=== PATIENT | male | born 1965 | race Caucasian/White ===

== ENCOUNTER 2020-10-08 14:52 | Emergency (ER) | payer OTHER, SELFPAY ==
[2020-10-08 15:03] VITALS: BP 169/84; PULSE 94; RESP 18; TEMP 36.9; O2SAT 99; BMI 32.3
[2020-10-08] MEDS: KETOROLAC 60 MG/2 ML VIAL 30 MG IM (15:14)
[2020-10-08] MEDS: ACETAMINOPHEN 325 MG TABLET 650 MG PO (15:15)
[2020-10-08] MEDS: CYCLOBENZAPRINE 10 MG TABLET PO (15:15)
--- NOTE | 2020-10-08 15:51 | ED_ITS ---
HPI - Back Pain/Injury <Enzo Vogt [facility] - Last Filed: 10/08/20 16:08> General Chief Complaint: Back Pain/Injury Stated Complaint: LOWER BACK Time Seen by Provider: 10/08/20 15:00 Source: patient Mode of arrival: Ambulatory Limitations: no limitations History of Present Illness HPI Narrative: This is a 54-year-old male, smoker, who has past medical history with chronic back pain, hypertension, hyperlipidemia, diabetes presents to ED with chief complain of recurring low back pain after he lifted heavy equipments follow up with twisting motion. Patient reports pain in low thoracic and upper lumbar region without radiation. Patient reports pain as 9/10 which is constant and worse with movements and lifting legs. Patient has been using [id number] salompas, Naproxen and Asprin backpain with minimal improvement. Patient reports had several x-ray tests were done without abnormal findings. Patient denies urinary symptoms such as urgency, frequency, dysuria, or hematuria. Patient denies fever, chills, nausea, vomiting, rashes. Patient denies history of IV drug use. Related Data Previous Rx's Medication Instructions Recorded cyclobenzaprine 10 mg PO BID PRN #10 tab 10/08/20 lidocaine 1 - 2 patch TOPICAL DAILY PRN #30 10/08/20 ea Allergies Allergy/AdvReac Type Severity Reaction Status Date / Time No Known Drug Allergies Allergy Verified 10/08/20 15:06 Review of Systems <Enzo Vogt [facility] - Last Filed: 10/08/20 16:08> Review of Systems Narrative: General: Denies fever, chills, fatigue, malaise, sweats. HEENT: Denies sinus pain, ear pain, sore throat, difficulty swallowing, dizziness. Respiratory: Denies dyspnea, cough, wheezing, hemoptysis, sputum. Cardiovascular: Denies chest pain, palpitations, orthopnea, edema. Gastrointestinal: Denies nausea, vomiting, abdominal pain, diarrhea, constipation, melena. : Denies dysuria, frequency, incontinence, hematuria, urinary retention. Musculoskeletal: See HPI Skin: Denies rash, skin lesions, or other. Neurologic: Denies weakness, headache, numbness, change in speech, confusion, seizures, incoordination. Psychiatric: No concerning psychosocial issues. 12-point review of systems is negative except for those stated above. Patient History <KATHY Foster - Last Filed: 10/08/20 16:08> Social History Smoking Status: Former smoker Smoking Status: Former smoker alcohol intake frequency: 0-2 drinks per day Substance Use Type: does not use Exam <KATHY Foster - Last Filed: 10/08/20 16:08> Narrative Exam Narrative: GEN: Alert, oriented x 3, well appearing and nourished, and in no acute distress. Head: Normal cephalic, atraumatic. No scalp or temporal tenderness, palpable mass or rash. EYES: Pupils are equal, round, and reactive to light and accommodation. Extrao cular muscles are intact bilaterally. There is no subconjunctival hemorrhage, exudate and sclera non-icteric. ENT: Hearing grossly intact. Airway patent. Neck: Trachea in midline. No JVD, non-tender without lymphadenopathy. No masses or thyroid megaly. Supple, non-tender and no meningeal signs. CARDIAC: Normal regular rate and rhythm without murmurs, gallops, or rubs. No chest wall tenderness. No peripheral edema, cyanosis or pallor. Capillary refill is less than 2 seconds. RESPIRATORY: Lungs are clear to auscultate bilaterally. No cough, wheezes, rales, or rhonchi. No stridor, respiratory distress, increase work of breathing, or accessary muscle used. ABD: Abdomen soft, nontender and non-distended. No guarding or rebound tenderness to palpate. Bowel sounds are normal in all 4 quadrants. There is no palpable masses or organomegaly. EXT: Full painless ROM of all extremities with no loss of sensation, strength, effusion or edema. SKIN: Warm, dry, normal color for patient. No erythema, lesions or rash over visible areas. NEUROLOGICAL: Alert and oriented to place, time and person. Sensation and motor function intact bilaterally. No facial droops, dysphasia. PSYCHIATRIC: Good judgement and reason, without hallucinations, abnormal affect or abnormal behaviors during the examination. Patient is not suicidal. Initial Vital Signs Initial Vital Signs: Vital Signs Temperature 98.5 F 10/08/20 15:03 Pulse Rate 94 H 10/08/20 15:03 Respiratory Rate 18 10/08/20 15:03 Blood Pressure 169/84 H 10/08/20 15:03 Pulse Oximetry 99 10/08/20 15:03 Back/Spine/Pelvis Back: normal to inspection Thoracic/Lumbar Spine: thoracic and lumbar spine normal to inspection, No surgical scar(s) present, bend over test abnormal, pain with thoraco-lumbar ROM, paraspinal tenderness, thoraco-lumbar ROM limited, No thoracic spinal tenderness, No lumbar spinal tenderness and straight leg raise positive <Umang Aguilar DO - Last Filed: 10/08/20 16:13> Initial Vital Signs Initial Vital Signs: Vital Signs Temperature 98.5 F 10/08/20 15:03 Pulse Rate 94 H 10/08/20 15:03 Respiratory Rate 18 10/08/20 15:03 Blood Pressure 169/84 H 10/08/20 15:03 Pulse Oximetry 99 10/08/20 15:03 Scores <RADHA FosterP - Last Filed: 10/08/20 16:08> GCS Gisell coma scale eye opening: Spontaneous Gisell coma scale verbal response: Orientated [place] coma scale motor response: Obey commands [place] coma scale total score: 15 qSOFA Altered Mental Status (GCS <15): No Respiratory rate greater than/equal to 22: No Systolic blood pressure less than or equal to 100: No qSOFA Total: 0 0-1 Not High Risk 1-3 High risk Course <RADHA FosterP - Last Filed: 10/08/20 16:08> Orders Ordered: Discontinued Medications Acetaminophen (Acetaminophen 325 Mg Tablet) 650 mg PO NOW ONE Stop: 10/08/20 15:12 Last Admin: 10/08/20 15:15 Dose: 650 mg Documented by: DEREK Cyclobenzaprine HCl (Cyclobenzaprine 10 Mg Tablet) 10 mg PO NOW ONE Stop: 10/08/20 15:12 Last Admin: 10/08/20 15:15 Dose: 10 mg Documented by: DEREK Ketorolac Tromethamine (Ketorolac 60 Mg/2 Ml Vial) 30 mg IM NOW ONE Stop: 10/08/20 15:12 Last Admin: 10/08/20 15:14 Dose: 30 mg Documented by: DEREK Vital Signs Vital signs: Vital Signs - 8 hr 10/08/20 15:03 Temperature 98.5 F Pulse Rate 94 H Respiratory Rate 18 Blood Pressure 169/84 H Pulse Oximetry 99 <Umang Aguilar DO - Last Filed: 10/08/20 16:13> Orders Ordered: Discontinued Medications Acetaminophen (Acetaminophen 325 Mg Tablet) 650 mg PO NOW ONE Stop: 10/08/20 15:12 Last Admin: 10/08/20 15:15 Dose: 650 mg Documented by: DEREK Cyclobenzaprine HCl (Cyclobenzaprine 10 Mg Tablet) 10 mg PO NOW ONE Stop: 10/08/20 15:12 Last Admin: 10/08/20 15:15 Dose: 10 mg Documented by: DEREK Ketorolac Tromethamine (Ketorolac 60 Mg/2 Ml Vial) 30 mg IM NOW ONE Stop: 10/08/20 15:12 Last Admin: 10/08/20 15:14 Dose: 30 mg Documented by: DEREK Vital Signs Vital signs: Vital Signs - 8 hr 10/08/20 15:03 Temperature 98.5 F Pulse Rate 94 H Respiratory Rate 18 Blood Pressure 169/84 H Pulse Oximetry [address] [facility] - Back Pain/Injury <KATHY Foster - Last Filed: 10/08/20 16:08> Differential Diagnosis Differential diagnosis: Likely strain of lumbar region, renal colic, pyelonephritis, thoracic back pain, discitis and other Medical Records Attestation: I reviewed the patient's medical records. [facility] Narrative Medical decision making narrative: This is a 54-year-old male who presents to ED with nonradiating low back pain without constitutional symptoms, urinary symptoms, trauma, no numbness/tingling to lower extremities, or incontinence problems for last 2 days after he was lifting heavy equipments and twisting motion. Patient has known history of low back pain with intermittent exacerbation. Thought about kidney stones or urinary infection but patient's presentation was not consistent with this. Paraspinous region tender to palpate bilaterally in low back. There is no spinous tenderness, redness, or warmth appreciated and patient has no history of IV drug use. Patient was treated IM Toradol, Tylenol and Flexeril and he started to feel improvement before discharged to home. Patient discharged to home with same medications and work note for 2 days. Advised to follow up with primary care physician for further evaluation and treatment, consider physical therapy, and further imaging test if patient's pain persists or not improving as expected. Return precautions discussed with patient and he verbalized understanding and agreement with the treatment plan. Discharge Plan Departure Patient Disposition: Home Clinical Impression: Low back pain Qualifiers: Chronicity: acute Back pain laterality: bilateral Sciatica presence: without sciatica Qualified Code(s): M54.5 - Low back pain Instructions: DI for Low Back Pain Activity Restrictions/Additional Instructions: You have been diagnosed with [low back pain]. What to do: *Take your medications as directed. Please use [id number] Tylenol and or Motrin as needed for discomfort. Tylenol 650-1000 mg up to 3 times a day as needed for pain. Ibuprofen/Naprosyn as needed for pain and follow instructions on the bottle and please take this medication with food to decrease GI irritations. Use lidocaine patch on affected site which stays on for 12 hours and off for 12 hours as needed for pain. Please use Flexeril for muscle relaxation. This medication can cause drowsiness so please do not drive, drink alcohol, or operate heavy equipments. These 2 medication have been transmitted to [facility], [place], operated by [facility]. *Follow up with your primary care provider in 2-3 days, call for an appointment. Let them know you were seen in the ED and that we asked you to be seen in follow up. *Return to ED if you have any new, worsening, or concerning symptoms, such as [chest pain, breathing difficulty, unable to tolerate fluids, fever, urinary sy mptoms, rash, weakness/numbness/tingling to lower extremities, stool/urinary incontinence, numbness to groin or any acute concerns]. Prescriptions: New lidocaine 5 % adhesive patch,medicated 1 - 2 patch topical DAILY PRN (Reason: pain) Qty: 30 RF: 0 cyclobenzaprine 10 mg tablet 10 mg PO BID PRN (Reason: muscle spasm) Qty: 10 RF: 0 Referrals: [facility] [Outside] Stand Alone Forms: Work Release Note <Umang Aguilar, - Last Filed: 10/08/20 16:13> Cosign ED Attending Cosignature Attestation: Dr Aguilar Co-Sign Statement: I was available for consultation during this patient's emergency department visit. This chart is signed by myself for administrative purposes only. I did not have direct contact with this patient during this visit. They were seen independe ntly by the [facility].
[2020-10-08 16:15] VITALS: BP 128/65; PULSE 81; RESP 16; O2SAT 98
== END 2020-10-08 16:23 | disposition home or self-care (01) ==
PROVIDERS: Emergency Provider Nurse Practitioner Family
DX: M54.5 Low back pain (principal); M54.6 Pain in thoracic spine; I10 Essential (primary) hypertension; E78.5 Hyperlipidemia, unspecified; E11.9 Type 2 diabetes mellitus without complications; X50.0XXA Overexertion from strenuous movement or load, initial encounter
CPT/HCPCS: 96372; 99281; 99283; J1885

== ENCOUNTER 2021-02-07 11:58 | Emergency (ER) | payer OTHER, SELFPAY ==
[2021-02-07 12:13] VITALS: BP 158/80; PULSE 76; RESP 17; TEMP 36.9; O2SAT 97
--- NOTE | 2021-02-07 16:46 | ED.BACK ---
HPI - Back Pain/Injury General Chief Complaint: Back Pain/Injury Stated Complaint: lower back pain Time Seen by Provider: 02/07/21 16:41 Source: patient History of Present Illness HPI Narrative: Patient is a 55-year-old male who has chronic back pain and presents with worsening back pain over last day. He goes to physical therapy for his back pain. He wears a back brace. He is unsure exactly what he did he thinks maybe he needs. He has bilateral lumbar pain. He denies numbness or tingling down his legs. He has previously received Flexeril which is helped him in the past. No changes in bowel or bladder habits. Related Data Previous Rx's Medication Instructions Recorded cyclobenzaprine 10 mg tablet 10 mg PO BID PRN #10 tab 10/08/20 lidocaine 5 % topical patch 1 - 2 patch TOPICAL DAILY PRN #30 10/08/20 ea cyclobenzaprine 5 mg tablet 5 mg PO TID PRN #10 tab 02/07/21 Allergies Allergy/AdvReac Type Severity Reaction Status Date / Time No Known Drug Allergies Allergy Verified 02/07/21 12:17 Review of Systems Review of Systems Narrative: GENERAL: Denies chills,fever HEENT: Denies throat pain RESPIRATORY: Denies dyspnea, cough, wheezing CARDIOVASCULAR: Denies chest pain, palpitations GASTROINTESTINAL: Denies nausea, vomiting MUSCULOSKELETAL: See HPI SKIN: No rash, no laceration, no pruritus NEUROLOGIC: Denies weakness, dizziness, headache, numbness 8 point review of systems is negative except for those stated above and HPI Patient History Social History Smoking Status: Former smoker Smoking Status: Former smoker alcohol intake frequency: other Substance Use Type: does not use Exam Initial Vital Signs Initial Vital Signs: Vital Signs Temperature 98.4 F 02/07/21 12:13 Pulse Rate 76 02/07/21 12:13 Respiratory Rate 17 02/07/21 12:13 Blood Pressure 158/80 H 02/07/21 12:13 Pulse Oximetry 97 02/07/21 12:13 GENERAL: Well-appearing, well-nourished and in no acute distress. CARDIOVASCULAR: peripheral pulses in tact, cap refill <2 sec RESPIRATORY: No respiratory distress, speaks in full sentences without difficulty BACK: No vertebral tenderness bilateral lower lumbar pain cessation in lower extremities intact EXTREMITIES: Normal range of motion, no clubbing or edema. Neurovascularly intact NEUROLOGICAL: Cranial nerves II through XII grossly intact. Normal gait and speech. SKIN: Warm, dry, no petechiae, no rashes or lesions. Course Orders Ordered: Discontinued Medications Ketorolac Tromethamine (Ketorolac 30 Mg/Ml Vial) 30 mg IM NOW ONE Stop: 02/07/21 16:47 Last Admin: 02/07/21 17:01 Dose: 30 mg Documented by: ILDA Vital Signs Vital signs: Vital Signs - 8 hr 02/07/21 12:13 02/07/21 17:22 Temperature 98.4 F Pulse Rate 76 71 Respiratory Rate 17 Blood Pressure 158/80 H 142/84 H Pulse Oximetry 97 99 MDM - Back Pain/Injury MDM Narrative Medical decision making narrative: Patient has chronic ongoing he lower back pain with an acute exacerbation. Toradol and Flexeril some to help him the most. He is already taking Aleve at home. Discharge Plan Departure Patient Disposition: Home Clinical Impression: Acute exacerbation of chronic low back pain Instructions: DI for Back Spasm Activity Restrictions/Additional Instructions: *You have been diagnosed with acute on chronic back pain *What to do: Light stretches and massaging are encouraged. May try heating pad 20-30 minutes at a time. No heavy lifting and no strenuous activity until symptoms improve *Continue to take medications as directed Naproxen 500 mg every 12 hours Flexeril 5 mg every 8 hours as needed for muscle spasm--> SENT TO [facility] *Follow up with your primary care provider in 2-3 days *Return to ER if you should have a increasing back pain numbness tingling or or any new, worsening or concerning symptoms Prescriptions: New cyclobenzaprine 5 mg tablet 5 mg PO TID PRN (Reason: muscle spasm) Qty: 10 RF: 0 No Action lidocaine 5 % adhesive patch,medicated 1 - 2 patch topical DAILY PRN (Reason: pain) Qty: 30 RF: 0 cyclobenzaprine 10 mg tablet 10 mg PO BID PRN (Reason: muscle spasm) Qty: 10 RF: 0 Stand Alone Forms: Work Release Note
[2021-02-07] MEDS: KETOROLAC 30 MG/ML VIAL IM (17:01)
[2021-02-07 17:22] VITALS: BP 142/84; PULSE 71; O2SAT 99
== END 2021-02-07 17:23 | disposition home or self-care (01) ==
PROVIDERS: Emergency Provider Emergency Medicine
DX: G89.29 Other chronic pain (principal); M54.5 Low back pain
CPT/HCPCS: 96372; 99283; J1885